=== PATIENT | male | born 1955 | race Caucasian/White ===

== ENCOUNTER 2018-08-31 07:28 | Emergency (ER) | payer OTHER ==
[~2018-08-31] VITALS: Ht 170.2 cm; Wt 79.4 kg
[~2018-08-31 07:28] MED LIST: GLUCOPHAGE XR500 MG
[2018-08-31] MEDS ORDERED: POTASSIUM CITR15 MEQ (07:44)
[2018-08-31] MEDS ORDERED: ACETAZOLAMIDE125 MG (07:45)
[2018-08-31] MEDS ORDERED: LIPITOR20 MG (07:45)
[2018-08-31] MEDS ORDERED: BUSPIRONE HCL15 MG (07:46)
[2018-08-31] MEDS ORDERED: ATACAND16 MG (07:46)
[2018-08-31] MEDS ORDERED: DIAZEPAM2 MG (07:47)
[2018-08-31] MEDS ORDERED: TAMS0.4C PO (15:31)
[2018-08-31] MEDS ORDERED: ULTRACET PO (15:31)
== END 2018-08-31 18:18 | disposition home or self-care (01) ==
LOC: ER 07:28
DX: R10.11 Right upper quadrant pain (principal)